=== PATIENT | female | born 1980 | race Caucasian/White ===

== ENCOUNTER 2017-12-01 01:27 | Emergency (ER) | payer SELFPAY ==
[2017-12-01] MEDS: ONDANSETRON ODT 4 MG TAB.RAPDIS. PO ×2 (02:02)
== END 2017-12-01 02:30 | disposition home or self-care (01) ==
LOC: ER 01:27
DX: S09.90XA Unspecified injury of head, initial encounter (principal); W22.8XXA Striking against or struck by other objects, initial encounter; Y93.89 Activity, other specified; Y99.8 Other external cause status; Y92.89 Other specified places as the place of occurrence of the external cause
CPT/HCPCS: 99284; Q0162

== ENCOUNTER 2017-12-09 00:46 | Emergency (ER) | payer SELFPAY ==
[2017-12-09] MEDS ORDERED: LORazepam 1 MG TABLET ×2 (01:16)
[2017-12-09] MEDS: LORazepam 1 MG TABLET PO ×2 (01:18)
== END 2017-12-09 03:00 | disposition home or self-care (01) ==
LOC: ER 00:46
DX: F13.239 Sedative, hypnotic or anxiolytic dependence with withdrawal, unspecified (principal); G25.1 Drug-induced tremor; T42.4X5A Adverse effect of benzodiazepines, initial encounter; Y92.89 Other specified places as the place of occurrence of the external cause
CPT/HCPCS: 99283

== ENCOUNTER 2017-12-20 20:48 | Emergency (ER) | payer SELFPAY | END 2017-12-20 20:51 | LOC: ER 20:51 | DX: Z53.21 Procedure and treatment not carried out due to patient leaving prior to being seen by health care provider (principal) ==

== ENCOUNTER 2017-12-29 18:46 | Emergency (ER) | payer SELFPAY | END 2017-12-29 20:05 | disposition left against medical advice (07) | LOC: ER 20:05 | DX: M25.521 Pain in right elbow (principal); F43.10 Post-traumatic stress disorder, unspecified; F41.9 Anxiety disorder, unspecified | CPT/HCPCS: 99283 ==

== ENCOUNTER 2018-03-07 15:38 | Emergency (ER) | payer SELFPAY | END 2018-03-07 15:50 | disposition left against medical advice (07) | LOC: ER 15:38 | DX: M54.5 Low back pain (principal); R51 Headache; Z53.21 Procedure and treatment not carried out due to patient leaving prior to being seen by health care provider ==

== ENCOUNTER 2020-07-19 15:00 | Emergency (ER) | payer BC ==
[~2020-07-19] VITALS: Ht 154.9 cm; Wt 66.0 kg
[~2020-07-19 15:00] MED LIST: LORA0.5T96 PO; ONDA4TAB10 PO
[2020-07-19] MEDS ORDERED: IV NORMAL SALINE 1000ML BAG 1,000 ML IV ONE (15:15)
--- NOTE | 2020-07-19 15:17 | PHYS DOC ---
Past Medical History Past Medical History: Anxiety, Seizure, Other Additional Past Medical Histor: endometriosis, PTSD Past Surgical History: Other Additional Past Surgical Histo: FIBROID REMOVAL Smoking Status: Current Every Day Smoker Alcohol Use: Occasionally Drug Use: None General Adult HPI: HPI: 39-year-old female with history of anxiety, seizures, p/w intermittent "twitching". Began exhibiting very brief intermittent whole body twitches that began about 1 hour [employer]. She states this is often a precursor to seizures. States she has one seizure daily, denying being on AEDs, though states she takes gabapentin 600 mg TID (but not for neuropathy). No HANEY, vision changes, neck pa in/stiffness, nausea, vomiting, abdominal pain, URI symptoms, chest pain or dyspnea. Took one Xanax prior to arrival, without significant or prolonged period of being without it. Review of Systems: Review of Systems: Gen: No fever, chills. Eyes: No blurred vision, diplopia. ENT: No nasal congestion, sore throat. CV: No CP, palpitations. Resp. No SOB, cough. GI: No abd pain, N/V. : No dysuria, hematuria. Neuro: No HANEY, dizziness, weakness. Reports occasional twitching. MSK: No myalgia, arthralgia, back pain. Skin: No acute rash or lesion. Psych: Reports anxiety. Heart Score: Risk Factors: Risk Factors: DM, Current or recent (<one month) smoker, HTN, HLP, family history of CAD, obesity. Risk Scores: Score 0 - 3: 2.5% MACE over next 6 weeks - Discharge Home Score 4 - 6: 20.3% MACE over next 6 weeks - Admit for Clinical Observation Score 7 - 10: 72.7% MACE over next 6 weeks - Early Invasive Strategies Allergies: Allergies: Allergies Coded Allergies Type Severity Reaction Last Updated Verified No Known Drug Allergies 12/01/17 No Physical Exam: PE: Gen: NAD. Well nourished. Head: NC/AT. Eyes: No scleral icterus. No conjunctival injection. PERRL. ENT: MMM. Posterior OP clear. Neck: Supple. NT. CV: RRR. Peripheral pulses intact. Resp: CTAB. Abd: Soft. NT. ND. MSK: No peripheral cyanosis. No edema. Neuro: A&Ox3. Strength & sensation grossly intact throughout. No gross dysmetria. Exhibits occasional clonus of all extremities, as if startled. Skin. Warm. Dry. Psych: Flat affect. Current Patient Data: Labs: Laboratory Tests Test 07/19/20 15:18 07/19/20 15:54 White Blood Count 6.6 x10^3/uL (4.0-11.0) Red Blood Count 3.88 x10^6/uL (3.50-5.40) Hemoglobin 12.9 g/dL (12.0-15.5) Hematocrit 37.8 % (36.0-47.0) Mean Corpuscular Volume 98 fL (79-100) Mean Corpuscular Hemoglobin 33 pg (25-35) Mean Corpuscular Hemoglobin Concent 34 g/dL (31-37) Red Cell Distribution Width 14.1 % (11.5-14.5) Platelet Count 178 x10^3/uL (140-400) Neutrophils (%) (Auto) 49 % (31-73) Lymphocytes (%) (Auto) 41 % (24-48) Monocytes (%) (Auto) 8 % (0-9) Eosinophils (%) (Auto) 2 % (0-3) Basophils (%) (Auto) 1 % (0-3) Neutrophils # (Auto) 3.2 x10^3/uL (1.8-7.7) Lymphocytes # (Auto) 2.7 x10^3/uL (1.0-4.8) Monocytes # (Auto) 0.5 x10^3/uL (0.0-1.1) Eosinophils # (Auto) 0.1 x10^3/uL (0.0-0.7) Basophils # (Auto) 0.1 x10^3/uL (0.0-0.2) Serum Test, Qualitative Negative (NEG) Ethyl Alcohol Level < 10 mg/dL (0-10) Sodium Level 144 mmol/L (136-145) Chloride Level 106 mmol/L (98-107) Carbon Dioxide Level 28 mmol/L (21-32) Anion Gap 10 (6-14) Blood Urea Nitrogen 11 mg/dL (7-20) Estimated GFR (Cockcroft-Gault) 111.3 BUN/Creatinine Ratio 18 (6-20) Glucose Level 94 mg/dL (70-99) Calcium Level 8.6 mg/dL (8.5-10.1) Total Bilirubin 0.1 mg/dL (0.2-1.0) Aspartate Amino Transf (AST/SGOT) 29 U/L (15-37) Alkaline Phosphatase 45 U/L (46-116) Creatine Kinase 21 U/L (26-192) Total Protein 6.4 g/dL (6.4-8.2) Albumin 3.7 g/dL (3.4-5.0) Albumin/Globulin Ratio 1.4 (1.0-1.7) EKG: EKG: [] Radiology/Procedures: Radiology/Procedures: [] Course & Med Decision Making: Course & Med Decision Making Pertinent Labs and Imaging studies reviewed. (See chart for details) In summary, 39-year-old female who presents for evaluation of intermittent jerking of extremities, without LOC or altered mentation. No true seizure-like activity noted. Lab work is otherwise unrevealing. No gross electrolyte derangement. Received Ativan 1 g IV, as well as migraine cocktail. No focal neurological deficits, fall or trauma, or anticoagulant use which raises suspicion for emergent intracranial pathology, therefore CTH was deferred. Remains well-appearing and nontoxic. Jerking movements have since resolved. Will be discharged home with outpatient neurology follow-up. Return precautions given. Steve Disclaimer: Steve Disclaimer: This electronic medical record was generated, in whole or in part, using a voice recognition dictation system. Departure Departure Impression: Primary Impression: Myoclonic jerking Disposition: 01 HOME, SELF-CARE Condition: STABLE Referrals: NO PCP (PCP) URI DE LA TORRE MD Patient Instructions: Myoclonus Additional Instructions: Please follow up with the above neurologist, or the neurologist of your choice. Return to the ED if you develop new or worsening symptoms. Justicifation of Admission Dx: Justifications for Admission: Justification of Admission Dx: N/A HANS COWAN DO Jul 19, 2020 15:17
[2020-07-19 15:35] LABS: BASO # 0.1 x10^3/uL (0.0-0.2); BASO % 1 % (0-3); EOS # 0.1 x10^3/uL (0.0-0.7); EOS % 2 % (0-3); HEMATOCRIT 37.8 % (36.0-47.0); HEMOGLOBIN 12.9 g/dL (12.0-15.5); LYMPH # 2.7 x10^3/uL (1.0-4.8); LYMPH % 41 % (24-48); MEAN CORPUSCULAR HEMOGLOBIN 33 pg (25-35); MEAN CORPUSCULAR HGB CONC 34 g/dL (31-37); MEAN CORPUSCULAR VOLUME 98 fL (79-100); MONO # 0.5 x10^3/uL (0.0-1.1); MONO % 8 % (0-9); NEUT # 3.2 x10^3/uL (1.8-7.7); NEUT % 49 % (31-73); PLATELET COUNT 178 x10^3/uL (140-400); RED BLOOD COUNT 3.88 x10^6/uL (3.50-5.40); RED CELL DISTRIBUTION WIDTH 14.1 % (11.5-14.5); WHITE BLOOD COUNT 6.6 x10^3/uL (4.0-11.0)
[2020-07-19 15:45] LABS: PREG TEST PT QUAL NEGATIVE (NEG)
[2020-07-19 16:19] LABS: CALCIUM 8.6 mg/dL (8.5-10.1); CREATININE 0.6 mg/dL (0.6-1.0); GFR 111.3
[2020-07-19 16:25] LABS: ALBUMIN 3.7 g/dL (3.4-5.0); ALBUMIN/GLOBULIN RATIO 1.4 (1.0-1.7); MAGNESIUM 2.2 mg/dL (1.8-2.4); TOTAL BILIRUBIN 0.1 mg/dL (0.2-1.0); TOTAL PROTEIN 6.4 g/dL (6.4-8.2)
[2020-07-19] MEDS ORDERED: METOCLOPRAMIDE HCL 10 MG/2 ML VIAL. IVP ONE (17:00)
[2020-07-19] MEDS ORDERED: KETOROLAC 15 MG/ML VIAL. IVP ONE (17:00)
[2020-07-19] MEDS ORDERED: diphenhydrAMINE 50 MG/ML VIAL IVP ONE (17:00)
[2020-07-19 17:34] VITALS: BP 107/65
[2020-07-20] MEDS ORDERED: GABA600T7 PO (02:33)
[2020-07-20] MEDS ORDERED: SERT100T PO (02:33)
[2020-07-20] MEDS ORDERED: ALPR1TAB2 PO (03:55)
[2020-07-20] MEDS ORDERED: LEVE500T56 PO (14:06)
== END 2020-07-19 17:50 | disposition home or self-care (01) ==
LOC: ER 15:00
DX: G25.3 Myoclonus (principal); R56.9 Unspecified convulsions; R20.2 Paresthesia of skin; F41.9 Anxiety disorder, unspecified; F17.200 Nicotine dependence, unspecified, uncomplicated; Z98.890 Other specified postprocedural states
CPT/HCPCS: 36415; 80053; 82550; 83735; 84703; 85025; 96361; 96374; 96375; 99285; G0480; J1200; J1885; J2060; J2765; J7030

== ENCOUNTER 2020-07-19 18:58 | Inpatient (IN) | payer BC ==
[~2020-07-19] VITALS: Ht 154.9 cm; Wt 69.3 kg
--- NOTE | 2020-07-19 19:18 | PHYS DOC ---
Past Medical History Past Medical History: Anxiety, Seizure, Other Additional Past Medical Histor: endometriosis, PTSD Past Surgical History: Other Additional Past Surgical Histo: FIBROID REMOVAL Smoking Status: Current Every Day Smoker Alcohol Use: Occasionally Drug Use: None General Adult HPI: HPI: 39-year-old female past medical history significant for anxiety, endometriosis, PTSD, tobacco dependence and seizures, presents the ED as a bounce back, was discharged a little over 1 hour ago, with concern for twitching and myoclonic jerks. Patient returns now brought in by EMS who witnessed 1 minute episode of drooling, blue lips and snoring respirations, concern was for seizure. Patient reports she takes gabapentin 600 mg for her seizures and she took 1 Xanax prior to her initial ED visit. 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 Called 911. Pmd-Dr. Gamble. Patient reports that she has never had any definitive seizure diagnosis and has had intermittent seizures for the past 7 years. Initially resulted from alcohol withdrawal and now states she has seizures due to stress and medication withdrawal from benzodiazepine. Patient states she is no longer drinking alcohol-stopped due to being and delivered 5 months ago. Patient reports she has been prescribed Xanax 1 mg 4 times a day as needed for years. Has never seen a neurologist before. EMR reviewed and patient had a CBC, CMP, negative alcohol and test. Patient with no elevated CK or leukocytosis. Allergic to seroquel and wellbutrin. States she still has a headache from earlier. Pt reports " I feel like I'm out of medication in my brain is stalling/foggy." Review of Systems: Review of Systems: Constitutional: Denies fever or chills. [] Eyes: Denies change in visual acuity. [] HENT: Denies nasal congestion or sore throat. [] Respiratory: Denies cough or shortness of breath. [] Cardiovascular: Denies chest pain or edema. [] GI: Denies abdominal pain, nausea, vomiting, bloody stools or diarrhea. [] : Denies dysuria or hematuria Musculoskeletal: Denies back pain or joint pain. [] Integument: Denies rash. [] Neurologic: Denies focal weakness or sensory changes, neck stiffness Endocrine: Denies polyuria or polydipsia. [] Lymphatic: Denies swollen glands. [] Psychiatric: Denies depression or anxiety. [] Heart Score: Risk Factors: Risk Factors: DM, Current or recent (<one month) smoker, HTN, HLP, family history of CAD, obesity. Risk Scores: Score 0 - 3: 2.5% MACE over next 6 weeks - Discharge Home Score 4 - 6: 20.3% MACE over next 6 weeks - Admit for Clinical Observation Score 7 - 10: 72.7% MACE over next 6 weeks - Early Invasive Strategies Allergies: Allergies: Allergies Coded Allergies Type Severity Reaction Last Updated Verified No Known Drug Allergies 12/01/17 No Physical Exam: PE: Constitutional: Well developed, well nourished, no acute distress, non-toxic appearance. [] HENT: Normocephalic, atraumatic, bilateral external ears normal, oropharynx moist, no oral exudates, nose normal. [] Eyes: PERRLA-2mm bl, EOMI, conjunctiva normal, no discharge. [] Neck: Normal range of motion, no tenderness, supple, no stridor. [] Cardiovascular: tachycardic 108, no murmur [] Lungs & Thorax: Bilateral breath sounds clear to auscultation [] Abdomen: Bowel sounds normal, soft, no tenderness, no masses, no pulsatile masses. [] Skin: Warm, dry, no erythema, no rash. [] Back: No tenderness, no CVA tenderness. [] Extremities: No tenderness, no cyanosis, no clubbing, ROM intact, no edema ab rasions to both knees with no underlying tenderness, no active bleeding Neurologic: Alert and oriented X 3, normal motor function, normal sensory function, no focal deficits noted. [] Psychologic: Affect normal, judgement normal, slightly anxious EKG: EKG: Sinus tachycardia 114 bpm, no axis deviation, QTC 469, no T wave inversions, no ST elevations or ST depressions, no terminal R in AVR, normal QRS Radiology/Procedures: Radiology/Procedures: []IMAGING REPORT Signed PATIENT: HUBERT WASHINGTON ACCOUNT: [id number] : 1980 LOCATION: ER AGE: 39 SEX: F EXAM STATUS: REG ER ORD. PHYSICIAN: VOHS,BALA M DO REASON: seizure like activity, grand mal? PROCEDURE: CT HEAD AND CERVICAL SPINE WO STUDY: CT head and cervical spine without contrast INDICATION: Seizure-like activity. COMPARISON: 07/09/2020 TECHNIQUE: Axial CT imaging through the head and cervical spine without the use of intravenous contrast. Sagittal and coronal reformats were obtained. One or more of the following individualized dose reduction techniques were utilized for this examination: 1. Automated exposure control 2. Adjustment of the mA and/or kV according to patient size 3. Use of iterative reconstruction technique. FINDINGS: CT head: No acute intracranial hemorrhage. Dennis-white matter differentiation is maintained. No mass effect, midline shift or hydrocephalus. The visualized orbits are unremarkable as is the scalp. Intact calvarium. CT cervical spine: No acute fracture or traumatic malalignment. No significant osseous encroachment on the central canal or neural foramina. The soft tissues of the neck are unremarkable. No apical pneumothorax. IMPRESSION: CT head: 1. No acute intracranial abnormality by CT. No interval change from 07/09/2020. CT cervical spine: 1. No acute osseous abnormality. Electronically signed by: ASHIA LANZA MD (07/19/2020 7:57 PM) [id number] DICTATED and SIGNED BY: ASHIA LANZA MD DATE: 07/19/201956 Course & Med Decision Making: Course & Med Decision Making Pertinent Labs and Imaging studies reviewed. (See chart for details) Concern for seizure-like activity, witnessed by 2 RNs, lasted for approximately 30 seconds in the ED. Patient's upper extremities were flexed, clenched and shaking. RN reported patient was biting suction catheter. Drop arm test-arm fell on pts' face and then to the side. Seizure-like activity had resolved by the time I was at patient's bedside. No urinary incontinence of oral/tongue lacerations. Pt slightly confused after seizure but answering questions appropriately. Patient tachycardic. Alcohol and benzo withdrawal are both plausible. Banana bag IV fluids and Keppra loaded in ED. No h/o eeg. Will admit to medicine with neurology consulted. Patient stable at time of admission and agrees with this plan. I have spoken with the patient and/or caregivers. I have explained the patient's condition, diagnosis and treatment plan based on the information available to me at this time. I have answered the patient's and/or caregivers questions and answered any concerns. The patient and/or caregivers have as good an understanding of the patient's diagnosis, condition and treatment plan as can be expected at this point. The patient has been stabilized within the capability of the emergency department. The patient will be transported for further care and management or will be moved to an observation or inpatient service. I have communicated with the staff or medical practitioner taking over this patient's care. Dragon Disclaimer: Dragon Disclaimer: This electronic medical record was generated, in whole or in part, using a voice recognition dictation system. Departure Departure Impression: Primary Impression: Seizure-like activity Additional Impression: Benzodiazepine dependence Disposition: ADMITTED INPATIENT Admitting Physician: KATHI (Dr. Justice) Referrals: NO PCP (PCP) Justicifation of Admission Dx: Justifications for Admission: Justification of Admission Dx: Yes Comments: seizure like activity BALA CORNELIUS DO Jul 19, 2020 19:18
[2020-07-19 19:34] LABS: BILIRUBIN,URINE NEGATIVE (NEG); CLARITY,URINE CLEAR; COLOR,URINE YELLOW; NITRITE,URINE NEGATIVE (NEG); PROTEIN,URINE NEGATIVE (NEG-TRACE); UROBILINOGEN,URINE 0.2 mg/dL (0.2 mg/dL)
[2020-07-19 19:38] LABS: SQUAMOUS EPITHELIAL CELL,UR FEW /LPF
[2020-07-19 19:39] LABS: AMORPHOUS SEDIMENT,UR PRESENT /HPF; BACTERIA,URINE 0 /HPF (0-FEW); RBC,URINE 0 /HPF (0-2); WBC,URINE 0 /HPF (0-4)
[2020-07-19] MEDS ORDERED: MULTIVIT INFUSN,ADULT 4,VIT K 10 ML, THIAMINE INJ 100 MG, FOLIC ACID INJ 1 MG in IV NOR... IV ONE (19:45)
[2020-07-19] MEDS ORDERED: levETIRAcetam 1,000 MG in IV DEXTROSE 5% 100ML 100 ML IV ONE (19:45)
--- NOTE | 2020-07-19 20:00 | RAD ---
STUDY: CT head and cervical spine without contrast INDICATION: Seizure-like activity. COMPARISON: 07/09/2020 TECHNIQUE: Axial CT imaging through the head and cervical spine without the use of intravenous contrast. Sagittal and coronal reformats were obtained. One or more of the following individualized dose reduction techniques were utilized for this examination: 1. Automated exposure control 2. Adjustment of the mA and/or kV according to patient size 3. Use of iterative reconstruction technique. FINDINGS: CT head: No acute intracranial hemorrhage. Dennis-white matter differentiation is maintained. No mass effect, midline shift or hydrocephalus. The visualized orbits are unremarkable as is the scalp. Intact calvarium. CT cervical spine: No acute fracture or traumatic malalignment. No significant osseous encroachment on the central canal or neural foramina. The soft tissues of the neck are unremarkable. No apical pneumothorax. IMPRESSION: CT head: 1. No acute intracranial abnormality by CT. No interval change from 07/09/2020. CT cervical spine: 1. No acute osseous abnormality. Electronically signed by: ASHIA LANZA MD (07/19/2020 7:57 PM) [id number]
[2020-07-19 20:11] LABS: BARBITURATES NEG (NEG); BENZODIAZEPINES POS (NEG); CANNABINOIDS NEG (NEG); COCAINE NEG (NEG); METHADONE NEG (NEG); OPIATES NEG (NEG); PHENCYCLIDINE NEG (NEG)
[2020-07-19 20:12] LABS: AMPHETAMINE/METHAMPHETAMINE NEG (NEG)
[2020-07-19] MEDS ORDERED: ONDANSETRON PF 4 MG/2 ML VIAL. IVP ONE (22:00)
[2020-07-19] MEDS ORDERED: ACETAMINOPHEN 325 MG TABLET. PO ONE (22:30)
[2020-07-19] MEDS ORDERED: KETOROLAC 15 MG/ML VIAL. IVP ONE (23:45)
--- NOTE | 2020-07-19 23:55 | NUR ---
PT ADMITTED TO 210 VIA CART FROM ER ACCOMPANIED BY RN. PT AMBULATED TO BATHROOM THEN TO BED W/O ASSIST. PT ORIENTED TO UNIT STAFF AND POC. PT VERBALIZED UNDERSTANDING. ASSESSMENT COMPLETE, ADMISSION PACKET GIVEN. VSS. CALL WITHIN REACH WILL CONT TO MONITOR PT SAFETY AND STATUS. PMRN
[2020-07-20 00:04] VITALS: BP 128/87
[2020-07-20 02:18] VITALS: BP 90/51
[2020-07-20] MEDS ORDERED: GABA600T7 PO (02:33)
[2020-07-20] MEDS ORDERED: SERT100T PO (02:33)
[2020-07-20] MEDS ORDERED: ALPR1TAB2 PO (03:55)
--- NOTE | 2020-07-20 05:33 | NUR ---
PT STATED THAT HER PHARMACY IS IN [place], [place]
[2020-07-20 06:12] VITALS: BP 113/79
--- NOTE | 2020-07-20 06:32 | NUR ---
DR LO NOTIFIED ON CONSULT, NO NEW ORDERS, WILL CONT TO MONITOR PT. PMRN
[2020-07-20] MEDS ORDERED: FLU VACC QS 2020-21(6MOS+)/PF 0.5 ML SYRINGE. VAX IM ONE (09:00)
[2020-07-20] MEDS ORDERED: KETOROLAC 30 MG/ML VIAL. IVP PRN (09:15)
[2020-07-20] MEDS ORDERED: ONDANSETRON PF 4 MG/2 ML VIAL. IVP PRN (09:15)
[2020-07-20] MEDS ORDERED: levETIRAcetam 500 MG TABLET PO SCH (09:45)
[2020-07-20] MEDS ORDERED: GADOTERATE 7.5 MMOL/15ML VIAL. IVP ONE (11:00)
--- NOTE | 2020-07-20 11:01 | NUR ---
SS following for discharge planning. SS reviewed pt chart and discussed with pt RN. Pt is from home and is currently on room air. Neurology consulted. SS will continue to follow for discharge planning.
--- NOTE | 2020-07-20 12:18 | RAD ---
MRI Brain with and without contrast History:Seizures Technique: Multiplanar, multi sequential pre and postcontrast MR imaging was performed of the brain. Comparison: None Findings: There is some motion degradation. There is no evidence of recent infarct or cytotoxic edema. Ventricular size is within normal limits. There is very mild prominence of biparietal subarachnoid space likely on a developmental basis.There is no significant midline shift, intraaxial mass effect, or focal abnormal extra-axial fluid collection. There is no significant signal abnormality of the brain parenchyma. Hippocampal formations are symmetric in size and signal characteristics. There is no nodular parenchymal or leptomeningeal enhancement. There is preservation of the major intracranial flow-voids at the skull base. The cerebellar tonsils are normal in location. There is no significant abnormality of the pituitary gland. There is a nonenhancing T2 hyperintense cystic focus of the pineal gland about 7 mm AP by 8 mm transverse by 10 mm CC. Paranasal sinuses are overall aerated. There is very mild fluid in the lateral right mastoid air cells.There is preserved marrow signal of the clivus. Impression: 1. 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 Otherwise no significant intracranial abnormality is identified. Electronically signed by: Denny Payan MD (07/20/2020 12:15 PM) [place] [id number]
[2020-07-20 12:35] VITALS: BP 143/84
--- NOTE | 2020-07-20 13:20 | EEG ---
DATE OF SERVICE: 07/20/2020 ELECTROENCEPHALOGRAM REPORT EEG NUMBER: [id number] OBJECTIVE: The patient is a 39-year-old female with new seizures. DESCRIPTION: This is a digital study. Electrodes were placed according to international 10-20 system. Bipolar and referential montages are available. Activation procedures typically include hyperventilation and intermittent photic stimulation. INTERPRETATION: The waking background consists of 9-10 Hz, 50-100 microvolt activity, symmetrically distributed over parietooccipital regions and reactive to eye opening. There are frequent episodes of generalized slowing with sharply contoured waveforms. There is no clinical accompaniment on the video studies. Stage 1 sleep is achieved with normal electroencephalogram patterns. Hyperventilation and intermittent photic stimulation are noncontributory. IMPRESSION: This electroencephalogram with the patient awake and asleep is borderline because of the episodes of generalized slowing with sharpest activity, not clearcut for epileptic activity, but could be seen in a primary generalized epilepsy. Thank you for letting us help with the patient's care. URI DE LA TORRE MD DR: ANGELICA/shay JOB#: [id number] / [id number]
[2020-07-20] MEDS ORDERED: LEVE500T56 PO (14:06)
--- NOTE | 2020-07-20 14:19 | PDOC1 ---
History and Physical Date of Admission Date of Admission 07/20/2020 Identification/Chief Complaint Chief Complaint seizures Source Source: Chart review, Patient History of Present Illness History of Present Illness Patient is a 39-year-old female with past medical history of anxiety endometriosis close traumatic stress disorder seizures and tobacco dependence who also has been taking benzodiazepines for a long time apparently was seen in the emergency department for twitching and myoclonic jerks. The patient was brought after she had been assessed in the emergency department by EMS after presenting what they described as drooling blue lips and snoring respirations which concerned the medics for a possible seizure. Patient is taking gabapentin and Xanax on a regular basis she has not had withdrawal from the medications. She denies any illegal substance abuse no excessive drinking, and the patient stopped drinking when she got and has stay sober. Patient has a 5-month-old at home She denies taking medications for seizure disorder nor has she taking medications for seizures in the past. At the time my evaluation the patient is laying in bed in no acute distress. She denies any headache blurred vision no double vision no loss of vision no dysphagia odynophagia no chest pain palpitations no shortness of breath no abdominal discomfort nausea vomiting no aura type of symptoms no lower extremity edema nor cyanosis has been reported. Patient was admitted for further evaluation treatment and will be seen in consultation by Dr. Louise neurology. Past Medical History Psych: Anxiety, Addictions, Depression Past Surgical History Past Surgical History: No pertinent history Family History Family History: No Significant Social History Smoke: No ALCOHOL: none Drugs: None Current Problem List Problem List Problems Medical Problems: (1) Benzodiazepine dependence Status: Acute (2) Seizure-like activity Status: Acute Current Medications Current Medications Current Medications Medications (Trade) Dose Ordered Sig/Trixie Start Time Stop Time Status Last Admin Dose Admin Acetaminophen (Tylenol) 650 mg 1X ONCE 07/19/20 22:30 07/19/20 22:31 DC 07/19/20 21:52 650 MG Gadoterate Meglumine (Dotarem) 14 ml 1X ONCE 07/20/20 11:00 07/20/20 11:02 DC 07/20/20 11:22 14 ML Influenza Virus Vaccine Quadrival (Fluzone Quad Syringe) 0.5 ml ONCE ONCE 07/20/20 09:00 07/20/20 09:01 DC 07/20/20 08:43 0.5 ML Ketorolac Tromethamine (Toradol 15mg Vial) 15 mg 1X ONCE 07/19/20 23:45 07/19/20 23:46 DC 07/20/20 00:23 15 MG Ketorolac Tromethamine (Toradol 30mg Vial) 30 mg PRN Q6HRS PRN 07/20/20 09:15 07/25/20 09:14 07/20/20 09:15 30 MG Levetiracetam (Keppra) 500 mg BID 07/20/20 09:45 07/20/20 13:00 500 MG Levetiracetam 1000 mg/Dextrose 110 ml @ 440 mls/hr 1X ONCE 07/19/20 19:45 07/19/20 19:59 DC 07/19/20 20:33 440 MLS/HR Multivitamins 10 ml/Thiamine HCl 100 mg/Folic Acid 1 mg/Sodium Chloride 1,011.2 ml @ 1,000.088 mls/hr 1X ONCE 07/19/20 19:45 07/19/20 20:45 DC 07/19/20 20:29 1,000.088 MLS/HR Ondansetron HCl (Zofran) 4 mg PRN Q6HRS PRN 07/20/20 09:15 07/20/20 09:15 4 MG Allergies Allergies Allergies Coded Allergies Type Severity Reaction Last Updated Verified No Known Drug Allergies 12/01/17 No ROS Review of System CONSTITUTIONAL: No fever or chills EYES: No recent changes SKIN: No rash or itching CARDIOVASCULAR: No chest pain, syncope, palpitations, or edema RESPIRATORY: No SOB or cough GASTROINTESTINAL: No nausea, vomiting or abdominal pain NEUROLOGICAL: No headaches or weakness ENDOCRINE: No cold or heat intolerance GENITOURINARY: No urgency or frequency of urination MUSCULOSKELETAL: No back pain or joint pain LYMPHATICS: No enlarged lymph nodes PSYCHIATRIC: No anxiety or depression Physical Exam Physical Exam GEN.: No apparent distress. Alert and oriented. HEENT: Head is normocephalic, atraumatic NECK: Supple. LUNGS: Clear to auscultation. HEART: RRR, S1, S2 present. Peripheral pulses intact ABDOMEN: Soft, nontender. Positive bowel sounds. EXTREMITIES: Without any cyanosis. NEUROLOGIC: Normal speech, normal tone PSYCHIATRIC: Normal affect, normal mood. SKIN: No ulcerations Vitals Vitals Vital Signs Date Time Temp Pulse Resp B/P (MAP) Pulse Ox O2 Delivery O2 Flow Rate FiO2 07/20/20 12:35 97.7 73 143/84 (103) 99 Room Air 97.7 07/20/20 06:12 16 Labs Labs Laboratory Tests Test 07/19/20 19:24 Urine Collection Type U cath Urine Color Yellow Urine Clarity Clear Urine pH 6.0 (<5.0-8.0) Urine Specific [place] 1.020 (1.000-1.030) Urine Protein Negative mg/dL (NEG-TRACE) Urine Glucose (UA) Negative mg/dL (NEG) Urine Ketones (Stick) Negative mg/dL (NEG) Urine Blood Negative (NEG) Urine Nitrite Negative (NEG) Urine Bilirubin Negative (NEG) Urine Urobilinogen Dipstick 0.2 mg/dL (0.2 mg/dL) Urine Leukocyte Esterase Negative (NEG) Urine RBC 0 /HPF (0-2) Urine WBC 0 /HPF (0-4) Urine Squamous Epithelial Cells Few /LPF Urine Amorphous Sediment Present /HPF Urine Bacteria 0 /HPF (0-FEW) Urine Mucus Slight /LPF Urine Opiates Screen Neg (NEG) Urine Methadone Screen Neg (NEG) Urine Barbiturates Neg (NEG) Urine Phencyclidine Screen Neg (NEG) Urine Amphetamine/Methamphetamine Neg (NEG) Urine Benzodiazepines Screen Pos (NEG) Urine Cocaine Screen Neg (NEG) Urine Cannabinoids Screen Neg (NEG) Urine Ethyl Alcohol Neg (NEG) Laboratory Tests Test 07/19/20 19:24 Urine Collection Type U cath Urine Color Yellow Urine Clarity Clear Urine pH 6.0 (<5.0-8.0) Urine Specific [place] 1.020 (1.000-1.030) Urine Protein Negative mg/dL (NEG-TRACE) Urine Glucose (UA) Negative mg/dL (NEG) Urine Ketones (Stick) Negative mg/dL (NEG) Urine Blood Negative (NEG) Urine Nitrite Negative (NEG) Urine Bilirubin Negative (NEG) Urine Urobilinogen Dipstick 0.2 mg/dL (0.2 mg/dL) Urine Leukocyte Esterase Negative (NEG) Urine RBC 0 /HPF (0-2) Urine WBC 0 /HPF (0-4) Urine Squamous Epithelial Cells Few /LPF Urine Amorphous Sediment Present /HPF Urine Bacteria 0 /HPF (0-FEW) Urine Mucus Slight /LPF Urine Opiates Screen Neg (NEG) Urine Methadone Screen Neg (NEG) Urine Barbiturates Neg (NEG) Urine Phencyclidine Screen Neg (NEG) Urine Amphetamine/Methamphetamine Neg (NEG) Urine Benzodiazepines Screen Pos (NEG) Urine Cocaine Screen Neg (NEG) Urine Cannabinoids Screen Neg (NEG) Urine Ethyl Alcohol Neg (NEG) Images Images PATIENT: HUBERT WASHINGTON ACCOUNT: [id number] : 1980 LOCATION: ER AGE: 39 SEX: F EXAM STATUS: REG ER ORD. PHYSICIAN: BALA CORNELIUS DO REASON: seizure like activity, grand mal? PROCEDURE: CT HEAD AND CERVICAL SPINE WO STUDY: CT head and cervical spine without contrast INDICATION: Seizure-like activity. COMPARISON: 07/09/2020 TECHNIQUE: Axial CT imaging through the head and cervical spine without the use of intravenous contrast. Sagittal and coronal reformats were obtained. One or more of the following individualized dose reduction techniques were utilized for this examination: 1. Automated exposure control 2. Adjustment of the mA and/or kV according to patient size 3. Use of iterative reconstruction technique. FINDINGS: CT head: No acute intracranial hemorrhage. Dennis-white matter differentiation is maintained. No mass effect, midline shift or hydrocephalus. The visualized orbits are unremarkable as is the scalp. Intact calvarium. CT cervical spine: No acute fracture or traumatic malalignment. No significant osseous encroachment on the central canal or neural foramina. The soft tissues of the neck are unremarkable. No apical pneumothorax. IMPRESSION: CT head: 1. No acute intracranial abnormality by CT. No interval change from 07/09/2020. CT cervical spine: 1. No acute osseous abnormality. Electronically signed by: ASHIA LANZA MD (07/19/2020 7:57 PM) [id number] DICTATED and SIGNED BY: ASHIA LANZA MD DATE: 07/19/201956 VTE Prophylaxis Ordered VTE Prophylaxis Devices: Yes VTE Pharmacological Prophylaxi: No Assessment/Plan Assessment/Plan Seizure-like activity Generalized anxiety disorder History of PTSD Plan Admit for observation Seizure precautions Consult neurology Resume home medication Further recommendations based on the clinical course Justifications for Admission Other Justification HODAN WEAVER MD Jul 20, 2020 14:19
--- NOTE | 2020-07-20 14:20 | PDOC2 ---
NEUROLOGY CONSULT Date of Service DOS: DATE: 07/20/20 TIME: 14:14 Referring Physician Referring Physician: Dr. Aceves Source Source: Chart review, Patient History of Present Illness History of Present Illness The patient is a 39-year-old right-handed female who has had seizures for the past 7 years. Originally these were ascribed to alcohol use or medications, but she is on no new medications and has not had any alcohol in several months. In the past week she has had 2 or 3 episodes of myoclonic activity and a feeling of premonition. She had several episodes yesterday. She came to the emergency department and was given some Ativan and felt better, called [employer], but then felt unwell again and came back in the emergency department and was admitted. We have started her on levetiracetam and she feels fine now and would like to go home. There is no history of stroke or head injury. She has occasional headaches. Past Medical History Cardiovascular: HTN (Gestational) CENTRAL NERVOUS SYSTEM: Seizure Psych: Anxiety, Addictions, Depression Renal/: Other (Endometriosis, uterine fibroids) Family History Family History: No pertinent hx (Negative for seizures) Social History Social History Has significant other, less than 1 pack of cigarettes per day, no longer uses alcohol, no street drugs, is a substance abuse clinical coordinator Current Medications Current Medications Current Medications Multivitamins 10 ml/Thiamine HCl 100 mg/Folic Acid 1 mg/Sodium Chloride 1,011.2 ml @ 1,000.088 mls/hr 1X ONCE IV Last administered on 07/19/20at 20:29; Start 07/19/20 at 19:45; Stop 07/19/20 at 20:45; Status DC Levetiracetam 1000 mg/Dextrose 110 ml @ 440 mls/hr 1X ONCE IV Last administered on 07/19/20at 20:33; Start 07/19/20 at 19:45; Stop 07/19/20 at 19:59; Status DC Ondansetron HCl (Zofran) 4 mg 1X ONCE IVP Last administered on 07/19/20at 21:52; Start 07/19/20 at 22:00; Stop 07/19/20 at 22:01; Status DC Acetaminophen (Tylenol) 650 mg 1X ONCE PO Last administered on 07/19/20at 21:52; Start 07/19/20 at 22:30; Stop 07/19/20 at 22:31; Status DC Ketorolac Tromethamine (Toradol 15mg Vial) 15 mg 1X ONCE IVP Last administered on 07/20/20at 00:23; Start 07/19/20 at 23:45; Stop 07/19/20 at 23:46; Status DC Influenza Virus Vaccine Quadrival (Fluzone Quad [id number] Syringe) 0.5 ml ONCE ONCE VAX IM Last administered on 07/20/20at 08:43; Start 07/20/20 at 09:00; Stop 07/20/20 at 09:01; Status DC Ondansetron HCl (Zofran) 4 mg PRN Q6HRS PRN IVP NAUSEA/VOMITING Last administered on 07/20/20at 09:15; Start 07/20/20 at 09:15 Ketorolac Tromethamine (Toradol 30mg Vial) 30 mg PRN Q6HRS PRN IVP PAIN Last administered on 07/20/20at 09:15; Start 07/20/20 at 09:15; Stop 07/25/20 at 09:14 Levetiracetam (Keppra) 500 mg BID PO Last administered on 07/20/20at 13:00; Start 07/20/20 at 09:45 Gadoterate Meglumine (Dotarem) 14 ml 1X ONCE IVP Last administered on 07/20/20at 11:22; Start 07/20/20 at 11:00; Stop 07/20/20 at 11:02; Status DC Active Scripts Active Keppra (Levetiracetam) 500 Mg Tablet 500 Mg PO BID 30 Days Ativan (Lorazepam) 0.5 Mg Tablet 0.5 Mg PO TID Zofran Odt (Ondansetron) 4 Mg Tab.rapdis 4 Mg PO BID PRN Reported Xanax (Alprazolam) 1 Mg Tablet 1 Tab PO TID Zoloft (Sertraline Hcl) 100 Mg Tablet 100 Mg PO DAILY Gabapentin 600 Mg Tablet 600 Mg PO TID Allergies Allergies: Coded Allergies: No Known Drug Allergies (Unverified , 12/01/17) ROS Review of System Negative for fever, chills, weight loss, shortness of breath, chest pain, i ndigestion, hematochezia, melena, and dysuria. Full 14-point review of systems is negative. Physical Exam Physical Examination General: Well-developed, well-nourished white female in no acute distress HEENT: Normocephalic andatraumatic. Temporal arteriespulsatile and nontender. Neck: Supple without bruit, no meningismus Musculoskeletal: Stability:see neurologic. Gait exam:see neurologic. Tone:see neurologic.Strength:see neurologic. Neurological: Mental Status:intact, orientation, memory, attention span/concentration, language, fund of knowledge normal. Cranial Nerves:Pupils equal and reactive to light, extraocular movements areintact, visual nur are full to confrontation. Facial sensation is normal. There is no facial asymmetry. Vestibulo-ocular reflex is intact. Palate elevates and tongue protrudes in midline. All other cranial related problems are negative except as mentioned before.Reflexes:2+ and symmetric with flexor plantar responses. Motor:5/5 strength with normal tone and bulk. Coordination:Finger-nose finger and [id number] testing are normal. Rapid alternating movements and fine finger movements are intact. Gait:Normal, including tandem. Sensory:Normal pinprick, vibration, light touch, proprioception. Vitals VITALS Vital Signs Date Time Temp Pulse Resp B/P (MAP) Pulse Ox O2 Delivery O2 Flow Rate FiO2 07/20/20 12:35 97.7 73 143/84 (103) 99 Room Air 97.7 07/20/20 06:12 16 Labs Labs Laboratory Tests Test 07/19/20 19:24 Urine Collection Type U cath Urine Color Yellow Urine Clarity Clear Urine pH 6.0 (<5.0-8.0) Urine Specific [place] 1.020 (1.000-1.030) Urine Protein Negative mg/dL (NEG-TRACE) Urine Glucose (UA) Negative mg/dL (NEG) Urine Ketones (Stick) Negative mg/dL (NEG) Urine Blood Negative (NEG) Urine Nitrite Negative (NEG) Urine Bilirubin Negative (NEG) Urine Urobilinogen Dipstick 0.2 mg/dL (0.2 mg/dL) Urine Leukocyte Esterase Negative (NEG) Urine RBC 0 /HPF (0-2) Urine WBC 0 /HPF (0-4) Urine Squamous Epithelial Cells Few /LPF Urine Amorphous Sediment Present /HPF Urine Bacteria 0 /HPF (0-FEW) Urine Mucus Slight /LPF Urine Opiates Screen Neg (NEG) Urine Methadone Screen Neg (NEG) Urine Barbiturates Neg (NEG) Urine Phencyclidine Screen Neg (NEG) Urine Amphetamine/Methamphetamine Neg (NEG) Urine Benzodiazepines Screen Pos (NEG) Urine Cocaine Screen Neg (NEG) Urine Cannabinoids Screen Neg (NEG) Urine Ethyl Alcohol Neg (NEG) Laboratory Tests Test 07/19/20 19:24 Urine Collection Type U cath Urine Color Yellow Urine Clarity Clear Urine pH 6.0 (<5.0-8.0) Urine Specific [place] 1.020 (1.000-1.030) Urine Protein Negative mg/dL (NEG-TRACE) Urine Glucose (UA) Negative mg/dL (NEG) Urine Ketones (Stick) Negative mg/dL (NEG) Urine Blood Negative (NEG) Urine Nitrite Negative (NEG) Urine Bilirubin Negative (NEG) Urine Urobilinogen Dipstick 0.2 mg/dL (0.2 mg/dL) Urine Leukocyte Esterase Negative (NEG) Urine RBC 0 /HPF (0-2) Urine WBC 0 /HPF (0-4) Urine Squamous Epithelial Cells Few /LPF Urine Amorphous Sediment Present /HPF Urine Bacteria 0 /HPF (0-FEW) Urine Mucus Slight /LPF Urine Opiates Screen Neg (NEG) Urine Methadone Screen Neg (NEG) Urine Barbiturates Neg (NEG) Urine Phencyclidine Screen Neg (NEG) Urine Amphetamine/Methamphetamine Neg (NEG) Urine Benzodiazepines Screen Pos (NEG) Urine Cocaine Screen Neg (NEG) Urine Cannabinoids Screen Neg (NEG) Urine Ethyl Alcohol Neg (NEG) Images Images EEG: frequent episodes of generalized slowing with sharply contoured waveforms. MRI Brain with and without contrast History:Seizures Technique: Multiplanar, multi sequential pre and postcontrast MR imaging was performed of the brain. Comparison: None Findings: There is some motion degradation. There is no evidence of recent infarct or cytotoxic edema. Ventricular size is within normal limits. There is very mild prominence of biparietal subarachnoid space likely on a developmental basis.There is no significant midline shift, intraaxial mass effect, or focal abnormal extra-axial fluid collection. There is no significant signal abnormality of the brain parenchyma. Hippocampal formations are symmetric in size and signal characteristics. There is no nodular parenchymal or leptomeningeal enhancement. There is preservation of the major intracranial flow-voids at the skull base. The cerebellar tonsils are normal in location. There is no significant abnormality of the pituitary gland. There is a nonenhancing T2 hyperintense cystic focus of the pineal gland about 7 mm AP by 8 mm transverse by 10 mm CC. Paranasal sinuses are overall aerated. There is very mild fluid in the lateral right mastoid air cells.There is preserved marrow signal of the clivus. Impression: 1. 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 Otherwise no significant intracranial abnormality is identified. CT head: No acute intracranial hemorrhage. Dennis-white matter differentiation is maintained. No mass effect, midline shift or hydrocephalus. The visualized orbits are unremarkable as is the scalp. Intact calvarium. CT cervical spine: No acute fracture or traumatic malalignment. No significant osseous encroachment on the central canal or neural foramina. The soft tissues of the neck are unremarkable. No apical pneumothorax. IMPRESSION: CT head: 1. No acute intracranial abnormality by CT. No interval change from 07/09/2020. CT cervical spine: 1. No acute osseous abnormality. 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 Discussed with Dr. Aceves Thank you for letting me help with the patient's care. URI DE LA TORRE MD Jul 20, 2020 14:20
--- NOTE | 2020-07-20 14:22 | PDOC3 ---
Discharge Summary Visit Information Date of Admission: Jul 20, 2020 Date of Discharge: Jul 20, 2020 Admitting Diagnosis Comment: Seizure activity Final Diagnosis Problems Medical Problems: (1) Benzodiazepine dependence Status: Acute (2) Seizure-like activity Status: Acute History of PTSD Generalized anxiety disorder Brief Hospital Course Allergies Allergies Coded Allergies Type Severity Reaction Last Updated Verified No Known Drug Allergies 12/01/17 No Vital Signs Vital Signs Date Time Temp Pulse Resp B/P (MAP) Pulse Ox O2 Delivery O2 Flow Rate FiO2 07/20/20 12:35 97.7 73 143/84 (103) 99 Room Air 97.7 07/20/20 06:12 16 Lab Results Laboratory Tests Test 07/19/20 19:24 Urine Collection Type U cath Urine Color Yellow Urine Clarity Clear Urine pH 6.0 (<5.0-8.0) Urine Specific [place] 1.020 (1.000-1.030) Urine Protein Negative mg/dL (NEG-TRACE) Urine Glucose (UA) Negative mg/dL (NEG) Urine Ketones (Stick) Negative mg/dL (NEG) Urine Blood Negative (NEG) Urine Nitrite Negative (NEG) Urine Bilirubin Negative (NEG) Urine Urobilinogen Dipstick 0.2 mg/dL (0.2 mg/dL) Urine Leukocyte Esterase Negative (NEG) Urine RBC 0 /HPF (0-2) Urine WBC 0 /HPF (0-4) Urine Squamous Epithelial Cells Few /LPF Urine Amorphous Sediment Present /HPF Urine Bacteria 0 /HPF (0-FEW) Urine Mucus Slight /LPF Urine Opiates Screen Neg (NEG) Urine Methadone Screen Neg (NEG) Urine Barbiturates Neg (NEG) Urine Phencyclidine Screen Neg (NEG) Urine Amphetamine/Methamphetamine Neg (NEG) Urine Benzodiazepines Screen Pos (NEG) Urine Cocaine Screen Neg (NEG) Urine Cannabinoids Screen Neg (NEG) Urine Ethyl Alcohol Neg (NEG) Laboratory Tests Test 07/19/20 19:24 Urine Collection Type U cath Urine Color Yellow Urine Clarity Clear Urine pH 6.0 (<5.0-8.0) Urine Specific [place] 1.020 (1.000-1.030) Urine Protein Negative mg/dL (NEG-TRACE) Urine Glucose (UA) Negative mg/dL (NEG) Urine Ketones (Stick) Negative mg/dL (NEG) Urine Blood Negative (NEG) Urine Nitrite Negative (NEG) Urine Bilirubin Negative (NEG) Urine Urobilinogen Dipstick 0.2 mg/dL (0.2 mg/dL) Urine Leukocyte Esterase Negative (NEG) Urine RBC 0 /HPF (0-2) Urine WBC 0 /HPF (0-4) Urine Squamous Epithelial Cells Few /LPF Urine Amorphous Sediment Present /HPF Urine Bacteria 0 /HPF (0-FEW) Urine Mucus Slight /LPF Urine Opiates Screen Neg (NEG) Urine Methadone Screen Neg (NEG) Urine Barbiturates Neg (NEG) Urine Phencyclidine Screen Neg (NEG) Urine Amphetamine/Methamphetamine Neg (NEG) Urine Benzodiazepines Screen Pos (NEG) Urine Cocaine Screen Neg (NEG) Urine Cannabinoids Screen Neg (NEG) Urine Ethyl Alcohol Neg (NEG) Brief Hospital Course Ms. Bacon is a 39 old female who presented with seizure-like activity and was seen in consultation by neurology. EEG was performed with subtle abnormalities that will certainly require antiepileptic drug initiation. Patient will be following up with Dr. Louise in the outpatient setting and 2 weeks. She was deemed appropriate for discharge from the medical and neurological standpoint of view. Signs and symptoms of alarm were discussed with the patient prior to discharge she understands and acknowledges understanding of all the instructions. In good spirits to be going home Gen.: well-developed well-nourished in no apparent distress Head: Normal shape atraumatic Eyes: Pupils equal reactive to light and accommodation, normal conjunctivae and lids Ears: Normal shape Nose: Normal shape no trauma Mouth: No exudates of the back of throat no thrush no lesions Neck: Supple no JVD no carotid bruit or lymphadenopathy no thyromegaly Chest: Lungs clear to auscultation with good inspiratory effort no crackles rales or rhonchi Cardiovascular: S1-S2 regular rhythm no murmurs gallops or rubs Abdomen: Bowel sounds present soft nontender no hepatosplenomegaly appreciated sign Extremities: No clubbing no cyanosis no edema peripheral pulses palpated bilaterally Neurological: Alert awake oriented in person time place and situation, cranial nerves II through XII intact, no motor or sensory deficits appreciated Psych: Appropriate mood, cooperative Assessment Assessment PATIENT: HUBERT BACON ACCOUNT: [id number] : 1980 LOCATION: ER AGE: 39 SEX: F EXAM STATUS: REG ER ORD. PHYSICIAN: BALA CORNELIUS DO REASON: seizure like activity, grand mal? PROCEDURE: CT HEAD AND CERVICAL SPINE WO STUDY: CT head and cervical spine without contrast INDICATION: Seizure-like activity. COMPARISON: 07/09/2020 TECHNIQUE: Axial CT imaging through the head and cervical spine without the use of intravenous contrast. Sagittal and coronal reformats were obtained. One or more of the following individualized dose reduction techniques were utilized for this examination: 1. Automated exposure control 2. Adjustment of the mA and/or kV according to patient size 3. Use of iterative reconstruction technique. FINDINGS: CT head: No acute intracranial hemorrhage. Dennis-white matter differentiation is maintained. No mass effect, midline shift or hydrocephalus. The visualized orbits are unremarkable as is the scalp. Intact calvarium. CT cervical spine: No acute fracture or traumatic malalignment. No significant osseous encroachment on the central canal or neural foramina. The soft tissues of the neck are unremarkable. No apical pneumothorax. IMPRESSION: CT head: 1. No acute intracranial abnormality by CT. No interval change from 07/09/2020. CT cervical spine: 1. No acute osseous abnormality. Electronically signed by: ASHIA LANZA MD (07/19/2020 7:57 PM) [id number] DICTATED and SIGNED BY: ASHIA LANZA MD DATE: 07/19/201956 Discharge Information Condition at Discharge: Improved Follow Up: Weeks Disposition/Orders: D/C to Home Scheduled Alprazolam (Xanax) 1 Mg Tablet, 1 TAB PO TID for ANXIETY, #90 (Reported) Entered as Reported by: RADHA BALDERAS on 07/20/20354 Last Action: New Order on 07/20/20354 by RADHA BALDERAS Gabapentin (Gabapentin) 600 Mg Tablet, 600 MG PO TID for NEUROGENIC PAIN, (Reported) Entered as Reported by: RADHA BALDERAS on 07/20/20232 Last Action: New Order on 07/20/20232 by RADHA BALDERAS Levetiracetam (Keppra) 500 Mg Tablet, 500 MG PO BID for seizure disorder for 30 Days, #60 Prescribed by: HODAN WEAVER MD on 07/20/20 1406 Lorazepam (Ativan) 0.5 Mg Tablet, 0.5 MG PO TID for WITHDRAWAL IRRITABILITY, #10 Prescribed by: ANH MITCHELL on 12/09/17 0242 Sertraline Hcl (Zoloft) 100 Mg Tablet, 100 MG PO DAILY for ANTI-DEPRESSANT, Ref 0 (Reported) Entered as Reported by: RADHA BALDERAS on 07/20/20232 Last Action: New Order on 07/20/20232 by RADHA BALDERAS Scheduled PRN Ondansetron (Zofran Odt) 4 Mg Tab.rapdis, 4 MG PO BID PRN for NAUSEA/VOMITING, #10 Prescribed by: NAH MITCHELL on 12/01/17215 Justicifation of Admission Dx: Justifications for Admission: Justification of Admission Dx: Yes HODAN WEAVER MD Jul 20, 2020 14:22
--- NOTE | 2020-07-20 14:45 | NUR ---
Discharge instructions given to patient regarding follow up appointments. Dr. Herrera's contact information given to pt. Education given over medications and seizures. Patient verbalizes understanding.
== END 2020-07-20 15:00 | disposition home or self-care (01) | DRG 101 ==
LOC: ER 18:58 → 2 NORTH 22:44
PROVIDERS: ADMIT Family Medicine; ATTEND Family Medicine
PROC: 4A00X4Z Measurement of Central Nervous Electrical Activity, External Approach (ICD-10-PCS; principal; 2020-07-20)
DX: G40.409 Other generalized epilepsy and epileptic syndromes, not intractable, without status epilepticus (principal); F13.20 Sedative, hypnotic or anxiolytic dependence, uncomplicated; F41.1 Generalized anxiety disorder; F43.10 Post-traumatic stress disorder, unspecified; F32.9 Major depressive disorder, single episode, unspecified; Z87.891 Personal history of nicotine dependence
CPT/HCPCS: 70450; 70553; 72125; 80307; 81001; 90471; 90686; 95816; 96365; 96366; 96375; 99285; A9575; J1885; J1953; J2405; J3411; J3490; J7030; J7060; G0378